=== PATIENT | female | born 1990 | race Caucasian/White ===

== ENCOUNTER 2017-03-31 19:31 | Emergency (ER) | payer MEDICAID ==
[~2017-03-31] VITALS: Ht 154.9 cm; Wt 90.0 kg
[2017-03-31 19:32] VITALS: TEMP 98.6
[2017-03-31 20:59] LABS: PH 6 (5-8); URINE APPEARANCE Hazy; URINE BACTERIA Rare /hpf; URINE BILIRUBIN Negative (NEGATIVE); URINE BLOOD Negative (NEGATIVE); URINE COLOR Amber; URINE GLUCOSE Negative (NEGATIVE); URINE KETONE 2+ (NEGATIVE)
[2017-03-31] MEDS ORDERED: FLEXERIL 1010 MG/TAB PO (21:00)
[2017-03-31 21:03] LABS: ADJUSTED CALCIUM 9.2 mg/dL (8.4-10.2); ALBUMIN 4.2 gm/dL (3.5-5.0); BILIRUBIN,TOTAL 0.9 mg/dL (0.0-1.0); C-REACTIVE PROTEIN 1.1 mg/dL (0.0-0.9); CALCIUM 9.4 mg/dL (8.4-10.2); CREATININE, serum 0.53 mg/dL (0.52-1.25); POTASSIUM 3.3 mmol/L (3.4-5.0); TOTAL PROTEIN 7.6 gm/dL (6.4-8.2)
[2017-03-31 21:12] LABS: BASO % 0.3 % (0.0-2.0); EOS # 0.2 (0.0-0.7); EOS % 1.3 % (0-4.0); GRAN # 8.3 (1.4-6.5); HEMATOCRIT 39.7 % (37.0-47.0); HEMOGLOBIN 14.1 g/dl (12.5-16.0); LYMPH # 2.1 (1.2-3.4); LYMPH % 18.2 % (20.0-51.0); MEAN CELL VOLUME 83 fl (80.0-100.0); MEAN CORPUSCULAR HEMOGLOBIN 30 pg (27.0-31.0); MEAN CORPUSCULAR HGB CONC 36 g/dl (33.0-37.0); MEAN PLATELET VOLUME 10.4 fl (7.4-10.4); MONO # 0.9 (0.1-0.6); MONO % 7.6 % (1.7-9.3); PLATELET COUNT 328 K/mm3 (130-400); RED BLOOD COUNT 4.76 M/mm3 (4.10-5.30); REDCELL DISTRIBUTION WIDTH-CV 12.3 % (11.5-14.5); WHITE BLOOD COUNT 11.5 K/mm3 (4.8-10.8)
[2017-03-31] MEDS ORDERED: PHENERGAN 25 TA25 MG PO (23:19)
[2017-03-31] MEDS ORDERED: CEPHALEXIN500 M1 PO (23:20)
[2017-04-01 00:09] VITALS: BP 101/57; PULSE 60
[2017-04-02] MEDS ORDERED: NORCO 325 MG-51 TAB PO (18:44)
== END 2017-04-01 00:11 | disposition home or self-care (01) ==
LOC: COL.ER 19:31
PROVIDERS: Physician Assistant
DX: O20.0 Threatened abortion (principal); Z3A.08 8 weeks gestation of pregnancy; O26.891 Other specified pregnancy related conditions, first trimester; R10.2 Pelvic and perineal pain
CPT/HCPCS: J1170; J2550; J7030

== ENCOUNTER 2017-04-02 18:37 | Observation (INO) | payer MEDICAID ==
[~2017-04-02] VITALS: Wt 90.0 kg
[~2017-04-02 18:37] MED LIST: CEPHALEXIN500 M1 PO; FLEXERIL 1010 MG/TAB PO; PHENERGAN 25 TA25 MG PO
[2017-04-02] MEDS ORDERED: NORCO 325 MG-51 TAB PO (18:44)
[2017-04-02 19:10] LABS: BASO % 0.3 % (0.0-2.0); EOS # 0.4 (0.0-0.7); EOS % 2.9 % (0-4.0); GRAN # 8.2 (1.4-6.5); GRAN % 64.8 % (42.2-75.2); HEMATOCRIT 39.6 % (37.0-47.0); HEMOGLOBIN 13.8 g/dl (12.5-16.0); MEAN CELL VOLUME 84 fl (80.0-100.0); MEAN CORPUSCULAR HEMOGLOBIN 29 pg (27.0-31.0); MEAN CORPUSCULAR HGB CONC 35 g/dl (33.0-37.0); MEAN PLATELET VOLUME 10.5 fl (7.4-10.4); MONO # 0.9 (0.1-0.6); MONO % 7.4 % (1.7-9.3); PLATELET COUNT 299 K/mm3 (130-400); RED BLOOD COUNT 4.72 M/mm3 (4.10-5.30); REDCELL DISTRIBUTION WIDTH-CV 12.3 % (11.5-14.5); WHITE BLOOD COUNT 12.6 K/mm3 (4.8-10.8)
[2017-04-02 19:40] LABS: ALBUMIN 3.8 gm/dL (3.5-5.0); BILIRUBIN,TOTAL 0.6 mg/dL (0.0-1.0); CALCIUM 9.8 mg/dL (8.4-10.2); CREATININE, serum 0.53 mg/dL (0.52-1.25); POTASSIUM 3.8 mmol/L (3.4-5.0); TOTAL PROTEIN 7.1 gm/dL (6.4-8.2)
[2017-04-02 19:52] LABS: PH 7 (5-8); URINE APPEARANCE Clear; URINE BACTERIA None Seen /hpf; URINE BILIRUBIN Negative (NEGATIVE); URINE BLOOD Negative (NEGATIVE); URINE COLOR Yellow; URINE GLUCOSE Negative (NEGATIVE); URINE KETONE Negative (NEGATIVE); URINE UROBILINOGEN Negative (NEGATIVE); URINE WBC 0-2 /hpf
[2017-04-03 00:32] LABS: CHLAMYDIA/TRACH by PCR Female NOT DETECTED; NEISSERIA GON by PCR Female NOT DETECTED
[2017-04-03 03:37] VITALS: BP 107/53; PULSE 60; TEMP 98
[2017-04-03 06:22] LABS: BASO % 0.4 % (0.0-2.0); EOS # 0.3 (0.0-0.7); EOS % 3.3 % (0-4.0); GRAN # 5.9 (1.4-6.5); GRAN % 58.5 % (42.2-75.2); HEMOGLOBIN 12.6 g/dl (12.5-16.0); LYMPH % 29.8 % (20.0-51.0); MEAN CELL VOLUME 86 fl (80.0-100.0); MEAN CORPUSCULAR HEMOGLOBIN 30 pg (27.0-31.0); MEAN CORPUSCULAR HGB CONC 34 g/dl (33.0-37.0); MONO # 0.7 (0.1-0.6); MONO % 7.2 % (1.7-9.3); PLATELET COUNT 274 K/mm3 (130-400); RED BLOOD COUNT 4.25 M/mm3 (4.10-5.30); REDCELL DISTRIBUTION WIDTH-CV 12.6 % (11.5-14.5)
[2017-04-03 06:24] LABS: HEMATOCRIT 36.6 % (37.0-47.0)
[2017-04-03 06:35] LABS: ADJUSTED CALCIUM 8.8 mg/dL (8.4-10.2); ALBUMIN 3.4 gm/dL (3.5-5.0); BILIRUBIN,TOTAL 0.7 mg/dL (0.0-1.0); CALCIUM 8.3 mg/dL (8.4-10.2); CREATININE, serum 0.56 mg/dL (0.52-1.25); POTASSIUM 3.7 mmol/L (3.4-5.0); TOTAL PROTEIN 6.5 gm/dL (6.4-8.2)
[2017-04-03 07:00] VITALS: BP 96/42; PULSE 61; TEMP 98.9
[2017-04-03 12:00] VITALS: BP 102/48; PULSE 64
[2017-04-03 16:00] VITALS: BP 98/42; PULSE 58; TEMP 98.5
== END 2017-04-03 18:55 | disposition home or self-care (01) ==
LOC: COL.ER 18:37 → OB 04-03 02:19
PROVIDERS: Emergency Medicine; Obstetrics & Gynecology
DX: O99.89 Other specified diseases and conditions complicating pregnancy, childbirth and the puerperium (principal); R10.32 Left lower quadrant pain; Z3A.08 8 weeks gestation of pregnancy; O99.341 Other mental disorders complicating pregnancy, first trimester; F31.9 Bipolar disorder, unspecified
CPT/HCPCS: G0378; J1170; J2405; J2550; J3010; J7030

== ENCOUNTER 2017-04-10 22:34 | Emergency (ER) | payer MEDICAID ==
[~2017-04-10] VITALS: Ht 154.9 cm; Wt 84.5 kg
[~2017-04-10 22:34] MED LIST changes: +NORCO 325 MG-51 TAB PO
[2017-04-10 22:37] VITALS: TEMP 98.1
[2017-04-10 23:42] LABS: BASO % 0.1 % (0.0-2.0); EOS # 0.2 (0.0-0.7); EOS % 2.1 % (0-4.0); GRAN # 6.2 (1.4-6.5); GRAN % 65.1 % (42.2-75.2); HEMATOCRIT 39.4 % (37.0-47.0); LYMPH # 2.5 (1.2-3.4); LYMPH % 25.8 % (20.0-51.0); MEAN CELL VOLUME 83 fl (80.0-100.0); MEAN CORPUSCULAR HEMOGLOBIN 30 pg (27.0-31.0); MEAN CORPUSCULAR HGB CONC 36 g/dl (33.0-37.0); MEAN PLATELET VOLUME 10.5 fl (7.4-10.4); MONO # 0.6 (0.1-0.6); MONO % 6.6 % (1.7-9.3); PLATELET COUNT 247 K/mm3 (130-400); RED BLOOD COUNT 4.73 M/mm3 (4.10-5.30); REDCELL DISTRIBUTION WIDTH-CV 12.3 % (11.5-14.5); WHITE BLOOD COUNT 9.5 K/mm3 (4.8-10.8)
[2017-04-10 23:45] LABS: ADJUSTED CALCIUM 9.4 mg/dL (8.4-10.2); ALBUMIN 4.1 gm/dL (3.5-5.0); BILIRUBIN,TOTAL 0.6 mg/dL (0.0-1.0); CALCIUM 9.5 mg/dL (8.4-10.2); CREATININE, serum 0.52 mg/dL (0.52-1.25); POTASSIUM 3.6 mmol/L (3.4-5.0); TOTAL PROTEIN 7.7 gm/dL (6.4-8.2)
[2017-04-11] MEDS ORDERED: VITAMIN B650 MG (00:24)
[2017-04-11] MEDS ORDERED: PRILOTC (00:24)
[2017-04-11 00:29] LABS: PH 5 (5-8); SQUAMOUS EPITHELIAL 0-2 /hpf; URINE APPEARANCE Hazy; URINE BACTERIA Rare /hpf; URINE BILIRUBIN Negative (NEGATIVE); URINE BLOOD Negative (NEGATIVE); URINE COLOR Amber; URINE GLUCOSE Negative (NEGATIVE); URINE KETONE 1+ (NEGATIVE); URINE UROBILINOGEN Negative (NEGATIVE); URINE WBC 0-2 /hpf
[2017-04-11] MEDS ORDERED: ZOFRAN ODT4 MG PO (00:37)
[2017-04-11 01:10] VITALS: BP 117/69; PULSE 91
== END 2017-04-11 01:15 | disposition home or self-care (01) ==
LOC: COL.ER 22:34
PROVIDERS: Emergency Medicine
DX: O21.0 Mild hyperemesis gravidarum (principal); Z3A.09 9 weeks gestation of pregnancy
CPT/HCPCS: J2765; J7030

== ENCOUNTER 2017-05-01 09:51 | Emergency (ER) | payer MEDICAID ==
[~2017-05-01] VITALS: Ht 154.9 cm; Wt 84.1 kg
[~2017-05-01 09:51] MED LIST changes: +PRILOTC; +VITAMIN B650 MG; +ZOFRAN ODT4 MG PO
[2017-05-01 09:55] VITALS: TEMP 98.9
[2017-05-01 10:44] LABS: BASO % 0.2 % (0.0-2.0); EOS # 0.2 (0.0-0.7); EOS % 2.5 % (0-4.0); GRAN # 6.9 (1.4-6.5); GRAN % 72.5 % (42.2-75.2); HEMATOCRIT 37.8 % (37.0-47.0); HEMOGLOBIN 13.3 g/dl (12.5-16.0); LYMPH # 1.7 (1.2-3.4); LYMPH % 17.9 % (20.0-51.0); MEAN CELL VOLUME 85 fl (80.0-100.0); MEAN CORPUSCULAR HEMOGLOBIN 30 pg (27.0-31.0); MEAN CORPUSCULAR HGB CONC 35 g/dl (33.0-37.0); MEAN PLATELET VOLUME 10.5 fl (7.4-10.4); MONO # 0.6 (0.1-0.6); MONO % 6.3 % (1.7-9.3); PLATELET COUNT 262 K/mm3 (130-400); RED BLOOD COUNT 4.46 M/mm3 (4.10-5.30); REDCELL DISTRIBUTION WIDTH-CV 12.8 % (11.5-14.5); WHITE BLOOD COUNT 9.5 K/mm3 (4.8-10.8)
[2017-05-01 11:03] LABS: ALBUMIN 3.6 gm/dL (3.5-5.0); BILIRUBIN,TOTAL 0.5 mg/dL (0.0-1.0); CALCIUM 8.7 mg/dL (8.4-10.2); CREATININE, serum 0.48 mg/dL (0.52-1.25); POTASSIUM 3.4 mmol/L (3.4-5.0); TOTAL PROTEIN 7.2 gm/dL (6.4-8.2)
[2017-05-01 11:56] LABS: PH 6 (5-8); URINE APPEARANCE Clear; URINE BACTERIA Rare /hpf; URINE BILIRUBIN Negative (NEGATIVE); URINE BLOOD Negative (NEGATIVE); URINE COLOR Yellow; URINE GLUCOSE 3+ (NEGATIVE); URINE KETONE Negative (NEGATIVE); URINE UROBILINOGEN Negative (NEGATIVE); URINE WBC 0-2 /hpf
[2017-05-01] MEDS ORDERED: PHENERGAN25 MG RC (12:38)
[2017-05-01] MEDS ORDERED: PHENERGAN 25 TA25 MG PO (12:38)
[2017-05-01 15:08] VITALS: BP 108/63; PULSE 85
== END 2017-05-01 15:43 | disposition home or self-care (01) ==
LOC: COL.ER 09:51
PROVIDERS: Emergency Medicine
DX: O21.0 Mild hyperemesis gravidarum (principal); O99.89 Other specified diseases and conditions complicating pregnancy, childbirth and the puerperium; R19.7 Diarrhea, unspecified; O9A.211 Injury, poisoning and certain other consequences of external causes complicating pregnancy, first trimester; Z3A.13 13 weeks gestation of pregnancy; L29.9 Pruritus, unspecified; T45.0X5A Adverse effect of antiallergic and antiemetic drugs, initial encounter
CPT/HCPCS: J1200; J2405; J2550; J7030; J7042

== ENCOUNTER 2017-07-02 17:33 | Emergency (ER) | payer MEDICAID ==
[~2017-07-02] VITALS: Ht 154.9 cm; Wt 85.9 kg
[~2017-07-02 17:33] MED LIST changes: +PHENERGAN25 MG RC
[2017-07-02 17:46] VITALS: TEMP 98
[2017-07-02 18:30] LABS: BASO % 0.2 % (0.0-2.0); EOS # 0.1 (0.0-0.7); EOS % 1.4 % (0-4.0); GRAN # 7.1 (1.4-6.5); GRAN % 72.7 % (42.2-75.2); HEMATOCRIT 34.4 % (37.0-47.0); HEMOGLOBIN 11.9 g/dl (12.5-16.0); LYMPH # 1.5 (1.2-3.4); LYMPH % 15.4 % (20.0-51.0); MEAN CELL VOLUME 86 fl (80.0-100.0); MEAN CORPUSCULAR HEMOGLOBIN 30 pg (27.0-31.0); MEAN CORPUSCULAR HGB CONC 35 g/dl (33.0-37.0); MEAN PLATELET VOLUME 10.6 fl (7.4-10.4); MONO # 0.9 (0.1-0.6); MONO % 8.7 % (1.7-9.3); PLATELET COUNT 240 K/mm3 (130-400); RED BLOOD COUNT 4.02 M/mm3 (4.10-5.30); REDCELL DISTRIBUTION WIDTH-CV 13.3 % (11.5-14.5); WHITE BLOOD COUNT 9.7 K/mm3 (4.8-10.8)
[2017-07-02 18:40] VITALS: BP 100/65
[2017-07-02 18:55] LABS: ADJUSTED CALCIUM 8.8 mg/dL (8.4-10.2); ALBUMIN 3.7 gm/dL (3.5-5.0); BILIRUBIN,TOTAL 0.5 mg/dL (0.0-1.0); CALCIUM 8.6 mg/dL (8.4-10.2); CREATININE, serum 0.49 mg/dL (0.52-1.25); POTASSIUM 3.3 mmol/L (3.4-5.0); TOTAL PROTEIN 7.3 gm/dL (6.4-8.2)
[2017-07-02 19:06] VITALS: PULSE 93
== END 2017-07-02 19:07 | disposition left against medical advice (07) ==
LOC: COL.ER 17:33
PROVIDERS: Emergency Medicine
DX: O21.2 Late vomiting of pregnancy (principal); O99.612 Diseases of the digestive system complicating pregnancy, second trimester; K50.90 Crohn's disease, unspecified, without complications; Z3A.22 22 weeks gestation of pregnancy
CPT/HCPCS: J2765; J7030

== ENCOUNTER 2017-08-14 12:53 | Outpatient (CLI) | payer MEDICAID ==
[~2017-08-14] VITALS: Ht 154.9 cm; Wt 89.1 kg
[2017-08-14 13:15] VITALS: TEMP 99.2
[2017-08-14] MEDS ORDERED: FLEXERIL 1010 MG/TAB PO (13:22)
[2017-08-14 13:53] LABS: COLLECTION METHOD CLEAN CATCH
[2017-08-14 13:57] LABS: BASO % 0.2 % (0.0-2.0); EOS # 0.1 (0.0-0.7); EOS % 0.4 % (0-4.0); GRAN # 9.9 (1.4-6.5); GRAN % 84.7 % (42.2-75.2); LYMPH # 0.9 (1.2-3.4); LYMPH % 7.7 % (20.0-51.0); MEAN CELL VOLUME 85 fl (80.0-100.0); MEAN CORPUSCULAR HGB CONC 33 g/dl (33.0-37.0); MEAN PLATELET VOLUME 10.6 fl (7.4-10.4); MONO # 0.7 (0.1-0.6); MONO % 6.1 % (1.7-9.3); PLATELET COUNT 201 K/mm3 (130-400); RED BLOOD COUNT 3.86 M/mm3 (4.10-5.30); WHITE BLOOD COUNT 11.7 K/mm3 (4.8-10.8)
[2017-08-14 14:00] VITALS: BP 113/66; PULSE 97; TEMP 99.2
[2017-08-14 14:05] LABS: HEMATOCRIT 32.9 % (37.0-47.0); MEAN CORPUSCULAR HEMOGLOBIN 28 pg (27.0-31.0)
[2017-08-14 14:05] LABS: MUCOUS Present /lpf; PH 5 (5-8); URINE APPEARANCE Hazy; URINE BACTERIA Rare /hpf; URINE BILIRUBIN Negative (NEGATIVE); URINE BLOOD Negative (NEGATIVE); URINE COLOR Amber; URINE GLUCOSE Negative (NEGATIVE); URINE KETONE 1+ (NEGATIVE); URINE LEUKOCYTE ESTERASE 1+ (NEGATIVE); URINE PROTEIN(semi-quant) 1+ (NEGATIVE)
[2017-08-14 14:07] LABS: ADJUSTED CALCIUM 9.2 mg/dL (8.4-10.2); ALBUMIN 3.4 gm/dL (3.5-5.0); BILIRUBIN,TOTAL 0.9 mg/dL (0.0-1.0); CALCIUM 8.7 mg/dL (8.4-10.2); CREATININE, serum 0.5 mg/dL (0.52-1.25); POTASSIUM 3.4 mmol/L (3.4-5.0)
== END 2017-08-14 15:15 | disposition home or self-care (01) ==
LOC: LDRO 12:53
PROVIDERS: Obstetrics & Gynecology
DX: O99.89 Other specified diseases and conditions complicating pregnancy, childbirth and the puerperium (principal); R10.9 Unspecified abdominal pain; Z3A.27 27 weeks gestation of pregnancy
CPT/HCPCS: J0696

== ENCOUNTER 2017-10-20 13:46 | Outpatient (CLI) | payer MEDICAID ==
[~2017-10-20] VITALS: Ht 154.9 cm; Wt 91.4 kg
[2017-10-20 14:02] VITALS: BP 108/60; PULSE 93; TEMP 98.4
[2017-10-20] MEDS ORDERED: AMOXICILLIN 8751 TAB PO (14:14)
[2017-10-20] MEDS ORDERED: PREDNISONE20 MG PO (14:14)
[2017-10-20 14:34] VITALS: BP 113/58; PULSE 78
== END 2017-10-20 14:45 | disposition home or self-care (01) ==
LOC: LDRO 13:46 → LDR 13:55 → LDRO 14:45 → LDR 14:45
DX: O36.8130 Decreased fetal movements, third trimester, not applicable or unspecified (principal); Z3A.37 37 weeks gestation of pregnancy
CPT/HCPCS: OP

== ENCOUNTER 2017-10-29 09:43 | Inpatient (IN) | payer MEDICAID ==
[2017-10-29] VITALS (11 sets, daily range): BP systolic 107–134; BP diastolic 61–92; PULSE 52–109; TEMP 97.6–98.3
[~2017-10-29 09:43] MED LIST changes: +AMOXICILLIN 8751 TAB PO; +PREDNISONE20 MG PO
[2017-10-29] MEDS ORDERED: IBU600 MG PO (10:48)
[2017-10-29] MEDS ORDERED: PERCOCET 325 MG1 TA2 PO (10:49)
[2017-10-29 11:14] LABS: MEAN CELL VOLUME 80 fl (80.0-100.0); MEAN CORPUSCULAR HGB CONC 32 g/dl (33.0-37.0); MEAN PLATELET VOLUME 10.9 fl (7.4-10.4); PLATELET COUNT 213 K/mm3 (130-400); RED BLOOD COUNT 4.35 M/mm3 (4.10-5.30); REDCELL DISTRIBUTION WIDTH-CV 15.5 % (11.5-14.5)
[2017-10-29 11:15] LABS: HEMATOCRIT 34.7 % (37.0-47.0); HEMOGLOBIN 11.2 g/dl (12.5-16.0); MEAN CORPUSCULAR HEMOGLOBIN 26 pg (27.0-31.0)
[2017-10-29 11:25] LABS: BAND 2 % (0-10); EOSINOPHIL 2 % (0-4); LYMPHOCYTE 11 % (20.0-51.0); NEUTROPHILS 78 % (42.0-75.2)
[2017-10-29 11:26] LABS: ANISOCYTOSIS 1+; MICROCYTOSIS 1+; NUCLEATED RED BLOOD CELL 0 (0-6); PLATELET ESTIMATE NORMAL (NORMAL); POLYCHROMASIA 1+
[2017-10-29 11:27] LABS: TOXIC GRANULATION PRESENT
[2017-10-30 02:21] VITALS: BP 120/68; PULSE 60; TEMP 98.2
[2017-10-30 06:56] LABS: HEMATOCRIT 33.1 % (37.0-47.0); HEMOGLOBIN 10.4 g/dl (12.5-16.0)
[2017-10-30 09:01] VITALS: BP 114/58; PULSE 69; TEMP 97.9
== END 2017-10-30 16:08 | disposition home or self-care (01) | DRG 775 ==
LOC: LDRO 09:43 → LDR 10:29 → OB 10:29
PROVIDERS: Obstetrics & Gynecology
PROC: 10E0XZZ Delivery of Products of Conception, External Approach (ICD-10-PCS; principal; 2017-10-29)
PROC: 10J17ZZ Inspection of Products of Conception, Retained, Via Natural or Artificial Opening (ICD-10-PCS; 2017-10-29)
DX: O62.3 Precipitate labor (principal); O34.211 Maternal care for low transverse scar from previous cesarean delivery; N85.8 Other specified noninflammatory disorders of uterus; O69.81X0 Labor and delivery complicated by cord around neck, without compression, not applicable or unspecified; O75.89 Other specified complications of labor and delivery; Z3A.38 38 weeks gestation of pregnancy; Z37.0 Single live birth
CPT/HCPCS: J2210; J2590

== ENCOUNTER 2018-09-20 18:05 | Inpatient (IN) | payer MEDICAID ==
[~2018-09-20] VITALS: Ht 154.9 cm; Wt 90.5 kg
[2018-09-20] VITALS (11 sets, daily range): BP systolic 106–133; BP diastolic 60–88; PULSE 76–101; TEMP 98.4
[~2018-09-20 18:05] MED LIST changes: +IBU600 MG PO; +PERCOCET 325 MG1 TA2 PO
[2018-09-20 19:09] LABS: BASO % 0.3 % (0.0-2.0); EOS # 0.2 (0.0-0.7); EOS % 1.4 % (0-4.0); HEMOGLOBIN 11.3 g/dl (12.5-16.0); LYMPH # 1.7 (1.2-3.4); LYMPH % 15.2 % (20.0-51.0); MEAN CELL VOLUME 82 fl (80.0-100.0); MEAN CORPUSCULAR HEMOGLOBIN 27 pg (27.0-31.0); MEAN CORPUSCULAR HGB CONC 33 g/dl (33.0-37.0); MEAN PLATELET VOLUME 11.4 fl (7.4-10.4); MONO % 8.7 % (1.7-9.3); PLATELET COUNT 176 K/mm3 (130-400); RED BLOOD COUNT 4.12 M/mm3 (4.10-5.30); REDCELL DISTRIBUTION WIDTH-CV 14.6 % (11.5-14.5)
[2018-09-20 19:12] LABS: HEMATOCRIT 33.9 % (37.0-47.0)
[2018-09-21 00:10] VITALS: BP 119/67; PULSE 86; TEMP 98
[2018-09-21 04:31] VITALS: BP 107/62; PULSE 79
[2018-09-21 07:25] VITALS: BP 113/64; PULSE 74; TEMP 97.3
[2018-09-21 11:35] VITALS: BP 118/59; PULSE 62; TEMP 97.8
[2018-09-21 16:40] VITALS: BP 111/71; PULSE 76; TEMP 98.2
[2018-09-21 20:30] VITALS: BP 114/64; PULSE 81; TEMP 97.9
[2018-09-22] MEDS ORDERED: PERCOCET 325 MG1 TA2 PO (07:43)
[2018-09-22] MEDS ORDERED: MOTRIN 800800 MG/TAB PO (07:43)
[2018-09-22 09:36] VITALS: BP 110/65; PULSE 83; TEMP 97.9
== END 2018-09-22 20:50 | disposition home or self-care (01) | DRG 807 ==
LOC: LDRO 18:05 → LDR 18:19 → OB 09-21 04:36
PROVIDERS: Obstetrics & Gynecology
PROC: 10E0XZZ Delivery of Products of Conception, External Approach (ICD-10-PCS; principal; 2018-09-20)
DX: O34.211 Maternal care for low transverse scar from previous cesarean delivery (principal); Z37.0 Single live birth; Z3A.37 37 weeks gestation of pregnancy; O99.824 Streptococcus B carrier state complicating childbirth; O99.214 Obesity complicating childbirth; O99.344 Other mental disorders complicating childbirth; F31.9 Bipolar disorder, unspecified
CPT/HCPCS: J2540; J2590; J7120

== ENCOUNTER 2021-08-18 22:01 | Outpatient (CLI) | payer MEDICAID ==
[~2021-08-18] VITALS: Ht 154.9 cm; Wt 96.8 kg
[~2021-08-18 22:01] MED LIST changes: +MOTRIN 800800 MG/TAB PO
[2021-08-18 22:30] VITALS: BP 121/66; PULSE 101; TEMP 99.3
--- NOTE | 2021-08-18 23:16 | NUR ---
2315 - 31 YO G6 L4 AT 34.5WKS GESTATION TO LDR 3 AMBULATORY WITH C/O CTXS THAT STARTED ABOUT 1999 THIS EVENING AND ALSO REPORTS LOSING HER MUCOUS PLUG. PT DENIES LEAKING ANY FLUID, OR VAGINAL BLEEDING AND REPORTS DECREASED MOVEMENT TODAY
--- NOTE | 2021-08-19 00:23 | NUR ---
DISCHARGE INSTRUCTION REVIEWED WITH EARLY LABOR PRECAUTIONS, PT VERBALIZES UNDERSTANDING
--- NOTE | 2021-08-19 00:24 | NUR ---
DISMISSED AMBULATORY IN STABLE CONDITION
== END 2021-08-19 00:10 | disposition home or self-care (01) ==
LOC: LDRO 22:01 → LDR 22:17 → LDRO 08-19 00:10
DX: O62.9 Abnormality of forces of labor, unspecified (principal); Z3A.34 34 weeks gestation of pregnancy
CPT/HCPCS: OP

== ENCOUNTER 2021-09-09 14:58 | Outpatient (CLI) | payer MEDICAID ==
[~2021-09-09] VITALS: Ht 154.9 cm; Wt 97.3 kg
--- NOTE | 2021-09-09 15:05 | NUR ---
1505-Patient [age], , arrives on unit with complaints of ctx since last night, but have become more intense within the last hour. Ambulates to LDR3. Patient reports good movement, denies LOF, VB. Patient changed into gown. 1509-EFM/TOCO explained and applied. SVE /-3. Assessments completed at this time.
[2021-09-09 15:30] VITALS: BP 122/65; PULSE 93; TEMP 98.5
[2021-09-09] MEDS ORDERED: FLINTSTONES COM1 CT1 PO (15:31)
[2021-09-09] MEDS ORDERED: TYLENOL 500MG500 MG PO (15:32)
[2021-09-09 16:00] VITALS: BP 105/57; PULSE 93
[2021-09-09 16:30] VITALS: BP 107/62; PULSE 98
--- NOTE | 2021-09-09 16:30 | NUR ---
1630-Difficulty tracing ctx due to maternal position. This RN at bedside adjusting TOCO.
[2021-09-09 17:00] VITALS: PULSE 87
[2021-09-09 17:30] VITALS: BP 116/66; PULSE 95
[2021-09-09 17:43] VITALS: BP 109/62; PULSE 97
--- NOTE | 2021-09-09 18:00 | NUR ---
1800-Discharge instructions given and explained to patient. Patient verbalizes understanding. 1805-Patient ambulatory off unit.
== END 2021-09-09 18:05 | disposition home or self-care (01) ==
LOC: LDRO 14:58
DX: O62.9 Abnormality of forces of labor, unspecified (principal); Z3A.37 37 weeks gestation of pregnancy

== ENCOUNTER 2021-09-23 14:29 | Inpatient (IN) | payer MEDICAID ==
[2021-09-23] VITALS (9 sets, daily range): BP systolic 98–120; BP diastolic 46–66; PULSE 95–104; TEMP 98.1–99.2
[~2021-09-23] VITALS: Ht 156.2 cm; Wt 107.0 kg
[~2021-09-23 14:29] MED LIST changes: +FLINTSTONES COM1 CT1 PO; +ROXICODONE 55 MG/TAB PO; +TYLENOL 500MG500 MG PO
[2021-09-23 15:21] LABS: MEAN CELL VOLUME 86 fl (80.0-100.0); MEAN CORPUSCULAR HGB CONC 32 g/dl (33.0-37.0); MEAN PLATELET VOLUME 10.4 fl (7.4-10.4); PLATELET COUNT 181 K/mm3 (130-400); RED BLOOD COUNT 2.23 M/mm3 (4.10-5.30); REDCELL DISTRIBUTION WIDTH-CV 15.5 % (11.5-14.5)
[2021-09-23 15:31] LABS: HEMATOCRIT 19.2 % (37.0-47.0); MEAN CORPUSCULAR HEMOGLOBIN 27 pg (27.0-31.0)
[2021-09-23 15:32] LABS: HEMOGLOBIN 6.1 g/dl (12.5-16.0)
[2021-09-23 15:39] LABS: ALANINE AMINOTRANSFERASE 35 U/L (0-55); ALBUMIN 2.6 gm/dL (3.5-5.0); ALKALINE PHOSPHATASE 132 U/L (40-150); ANION GAP 10 mmol/L (7-16); AST,SGOT 38 U/L (5-34); BILIRUBIN,TOTAL 0.4 mg/dL (0.2-1.2); BLOOD UREA NITROGEN 9 mg/dL (7-19); C-REACTIVE PROTEIN 2.99 mg/dL (0.00-0.50); CALCIUM 7.9 mg/dL (8.4-10.2); CARBON DIOXIDE 21 mmol/L (22-29); CHLORIDE 107 mmol/L (98-107); CREATININE, serum 0.58 mg/dL (0.57-1.11); GLUCOSE 72 mg/dL (70-99); POTASSIUM 3.4 mmol/L (3.5-4.5); SODIUM 138 mmol/L (136-145); TOTAL PROTEIN 5.6 gm/dL (6.2-8.1)
[2021-09-23 15:47] LABS: TROPONIN-I < 0.010 ng/mL (0.00-0.033)
[2021-09-23 16:01] LABS: EOSINOPHIL 1 % (0-4); LYMPHOCYTE 15 % (20.0-51.0); NEUTROPHILS 81 % (42.0-75.2)
[2021-09-23 16:03] LABS: ANISOCYTOSIS 1+; HYPOCHROMIA 2+; PLATELET ESTIMATE NORMAL (NORMAL)
[2021-09-23 16:55] LABS: HEMOGLOBIN 5.7 g/dl (12.5-16.0)
[2021-09-23 16:56] LABS: HEMATOCRIT 17.8 % (37.0-47.0)
--- NOTE | 2021-09-23 17:30 | NUR ---
1715- ED CALLED WITH REPORT ON PT. 1730- PT TO FLOOR WITH ED STAFF. PT WEARING BRACELETS. NO FACE SHEET OR STICKERS BROUGHT UP BY ED STAFF. PT ABLE TO GET UP FROM ED BED AND WALK A COUPLE OF FEET TO BED. GAIT SLOW BY STEADY. 1730- ASSESSMENT COMPLETED. PT APPEARS SHORT OF BREATH WHEN TALKING AND MOVING. VITAL SIGNS WNL. TEMPERATURE 98 ORALLY AFTER DRINKING WATER SO THIS RN GOT AX TEMP AND WAS 99.2. PT STATES SHE WENT TO THE BATHROOM 15 MIN AGO IN THE ED AND HAD A "SATURATED" PAD AFTER WEARING IT FOR A FEW HOURS. SHE CHANGED PAD AFTER THE VOID IN THE ED. THIS RN ASSESSES NEW PAD AND THERE IS A NICKEL SIZE BLOOD SPOT IN PAD. 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 PT STATES SHE HAS PAIN IN HER BREASTS AND ATTEMPTED TO BREAST FEED IN THE ED AND COULD NOT DUE TO THE PAIN AND HOW HARD THEY ARE. 1750- THIS RN GETS PATIENT SITUATED IN BED. HAS PT SIGN CONSENTS FOR BLOOD TRANSFUSION. 1800- THIS RN FLUSHS IV SITE WITH NORMAL SALINE TO CONFIRM PATENCY.
[2021-09-24 00:55] VITALS: BP 115/58; PULSE 86; TEMP 98.4
[2021-09-24 03:02] LABS: HEMOGLOBIN 7.5 g/dl (12.5-16.0)
[2021-09-24 04:20] VITALS: BP 101/57; PULSE 81; TEMP 98.1
[2021-09-24 09:33] VITALS: BP 109/58; PULSE 82; TEMP 97.8
[2021-09-24] MEDS ORDERED: AMOXICILLIN 8751 TAB PO (10:25)
--- NOTE | 2021-09-24 11:25 | NUR ---
Follow-up visit; Patient thanked Aco Coordinator for looking in on her and reports that she is feeling so much better and is glad Aco Coordinator is keeping her in her prayers.
[2021-09-24 11:43] VITALS: BP 107/56; PULSE 88; TEMP 98
[2021-09-24 15:26] VITALS: BP 117/66; PULSE 94; TEMP 98.3
== END 2021-09-24 16:00 | disposition home or self-care (01) | DRG 776 ==
LOC: COL.ER 14:29 → OB 17:04
PROVIDERS: Emergency Medicine; Student in an Organized Health Care Education/Training Program; ADMIT Obstetrics & Gynecology
DX: O90.81 Anemia of the puerperium (principal); O86.12 Endometritis following delivery; D62 Acute posthemorrhagic anemia; O99.53 Diseases of the respiratory system complicating the puerperium; J45.909 Unspecified asthma, uncomplicated; O99.345 Other mental disorders complicating the puerperium; O99.215 Obesity complicating the puerperium; F31.9 Bipolar disorder, unspecified; Z20.822 Contact with and (suspected) exposure to COVID-19
CPT/HCPCS: J0295; J0694; J1940; J7030; P9016; Q9967